=== PATIENT | male | born 1955 | race Caucasian/White ===

== ENCOUNTER 2025-01-09 22:50 | Inpatient (IN) | payer MEDICARE, OTHER ==
[~2025-01-09] VITALS: Ht 172.7 cm; Wt 84.0 kg
[~2025-01-09 22:50] MED LIST: CHOL500013 PO; MULT-1192 PO; RANI150T7 PO
[2025-01-09] MEDS ORDERED: PHENYLEPHRINE HCL IN 0.9% NACL 400 MCG/10 ML SYRINGE IVP ONE (23:12)
[2025-01-09] MEDS ORDERED: NOREPINEPHRINE 8 MG/0.9 % NACL 250 ML IV ONE (23:12)
[2025-01-09] MEDS ORDERED: 0.9% SODIUM CHLORIDE 10 ML SYRINGE IVP PRN (23:15)
[2025-01-09] MEDS: NOREPINEPHRINE 8 MG/0.9 % NACL 250 ML IV PRN (23:20)
[2025-01-09] MEDS: PIPERACILLIN/TAZO 3.375 GM/D5W 50 ML IV ONE (23:31)
[2025-01-09] MEDS: SODIUM CHLORIDE 0.9% 2,000 ML IV ONE (23:32)
[2025-01-09] MEDS: ONDANSETRON HCL 4 MG/2 ML VIAL IVP ONE (23:32)
[2025-01-09 23:37] LABS: PLATELET COUNT (AUTO) 270 K/uL (150-450); RED BLOOD CELL COUNT(AUTO) 4.53 MIL/uL (4.50-5.90); RED CELL DISTRIBUTION WIDTH 14.8 % (11.5-14.5); WHITE BLOOD COUNT (AUTO) 12.4 K/uL (4.5-11.0)
[2025-01-09 23:48] LABS: CALCIUM, TOTAL 10.2 mg/dL (8.8-10.5); CREATININE 2.93 mg/dL (0.60-1.30); GLOMERULAR FILTR. RATE CALC 21 mL/min (>60); GLUCOSE,RANDOM 284 mg/dL (70-110); SODIUM SERUM 140 mmol/L (136-145); UREA NITROGEN, BLOOD 26 mg/dL (7-18)
[2025-01-09 23:53] LABS: ASPARTATE AMINOTRANSFERASE 38 U/L (15-37); CREATINE KINASE, TOTAL ONLY 31 U/L (39-308); TOTAL PROTEIN, SERUM 6.5 g/dL (6.4-8.2)
[2025-01-09 23:55] LABS: ABG BASE EXCESS -21.6 mmol/L (-2.0-3.0); ABG CARBOXYHEMOGLOBIN 0.8 % (0.5-1.5); ABG HCO3 10.2 mmol/L (21.0-28.0); ABG METHEMOGLOBIN 0.3 % (0.0-1.5); ABG OXYGEN CONTENT 18.1 mL/dL (15.0-23.0); ABG OXYGEN SATURATION 97.1 % (94.0-98.0); ABG OXYHEMOGLOBIN 96.0 % (94.0-98.0); ABG PCO2 21 mmHg (32.0-48.0); ABG TOTAL HEMOGLOBIN 13.3 G/dL (13.5-17.5); FRACTIONATED INSPIRED OXYGEN 100.0 % (21-100.0); PO2, ARTERIAL BG 108.0 mmHg (83.0-108.0); SOURCE, BLOOD GAS ARTERIAL; TEMPERATURE, FAHRENHEIT, BG 98.0 FAHREN (96.0-98.6)
[2025-01-09 23:57] LABS: TROPONIN I-HIGH SENSITIVITY 31 ng/L (<76)
[2025-01-09 23:57] LABS: ABG A-A DIFF O2 584.9 mmHg (10-20.0); ABG PH 7.155 (7.350-7.450); ALLEN TEST, BLOOD GAS Positive; FLOW, BLOOD GAS 15.00 L/min (0.00-15.00); O2 DEVICE,BLOOD GAS NON-REBREATHER (ROOM AIR); SITE, BLOOD GAS RT RADIAL
[2025-01-10] VITALS (12 sets, daily range): BP systolic 87–90; BP diastolic 44–54; PULSE 133–148; RESP 16–30; TEMP 98.7–101.7; O2SAT 0–100
[2025-01-10] LABS: LACTIC ACID 12.2 mmol/L (0.4-2.0)
[2025-01-10 00:20] LABS: INFLUENZA TYPE A NEGATIVE FOR TYPE A (NEGATIVE); INFLUENZA TYPE B NEGATIVE FOR TYPE B (NEGATIVE)
[2025-01-10] MEDS ORDERED: SODIUM BICARBONATE [ADULT] 8.4% 50 MEQ/50 ML SYRINGE IVP ONE ×3 (00:44→09:46)
[2025-01-10 01:26] LABS: COVID AG,FIA SOURCE NASAL SWAB
[2025-01-10 01:46] LABS: SARS-COV2 (COVID) ANTIGEN,FIA Negative (Negative)
[2025-01-10] MEDS ORDERED: ONDANSETRON HCL 4 MG/2 ML VIAL IVP PRN (02:15)
[2025-01-10] MEDS ORDERED: 0.9% SODIUM CHLORIDE 10 ML SYRINGE IVP PRN (02:15)
[2025-01-10 02:28] LABS: APPEARANCE,URINE CLEAR (CLEAR); GLUCOSE, URINE (UA) >=1000 mg/dL (NEGATIVE); LEUKOCYTE ESTERASE ,URINE NEGATIVE (NEGATIVE); NITRATE,URINE NEGATIVE (NEGATIVE); OCCULT BLOOD,URINE NEGATIVE (NEGATIVE); SPECIFIC GRAVITIY, URINE 1.022 (1.003-1.030)
[2025-01-10 02:31] LABS: SQUAMOUS EPITHELIAL CELL,UR Rare /LPF (None Seen)
[2025-01-10 02:36] LABS: ABG BASE EXCESS -14.6 mmol/L (-2.0-3.0); ABG CARBOXYHEMOGLOBIN 1.8 % (0.5-1.5); ABG HCO3 13.7 mmol/L (21.0-28.0); ABG METHEMOGLOBIN 0.5 % (0.0-1.5); ABG OXYGEN CONTENT 17.5 mL/dL (15.0-23.0); ABG OXYGEN SATURATION 90.4 % (94.0-98.0); ABG OXYHEMOGLOBIN 88.3 % (94.0-98.0); ABG PCO2 41 mmHg (32.0-48.0); ABG TOTAL HEMOGLOBIN 14.1 G/dL (13.5-17.5); FRACTIONATED INSPIRED OXYGEN 100.0 % (21-100.0); PO2, ARTERIAL BG 65.7 mmHg (83.0-108.0); SOURCE, BLOOD GAS ARTERIAL; TEMPERATURE, FAHRENHEIT, BG 97.8 FAHREN (96.0-98.6)
[2025-01-10 02:37] LABS: ABG A-A DIFF O2 607.7 mmHg (10-20.0); ABG PH 7.159 (7.350-7.450); O2 DEVICE,BLOOD GAS VENT (ROOM AIR); PEEP,BG 5 cm H2O; SET RATE, BG 18.0 min.; SITE, BLOOD GAS RT FEMORAL; VT, ABG 500 ml
[2025-01-10] MEDS: VASOPRESSIN 40 UNITS in DEXTROSE 5%-WATER 98 ML IV PRN (02:39)
[2025-01-10] MEDS: PHENYLEPHRINE 200 MG/D5%-WATER 250 ML IV PRN (03:42)
[2025-01-10] MEDS: EPINEPHrine 5 MG in DEXTROSE 5%-WATER 245 ML IV PRN (06:51)
[2025-01-10] MEDS ORDERED: SODIUM CHLORIDE 0.9% 500 ML IV ONE (09:02)
[2025-01-10 09:36] LABS: ABG BASE EXCESS -17.2 mmol/L (-2.0-3.0); ABG CARBOXYHEMOGLOBIN 1.9 % (0.5-1.5); ABG HCO3 12.5 mmol/L (21.0-28.0); ABG METHEMOGLOBIN 0.3 % (0.0-1.5); ABG OXYGEN CONTENT 19.6 mL/dL (15.0-23.0); ABG OXYGEN SATURATION 98.3 % (94.0-98.0); ABG OXYHEMOGLOBIN 96.1 % (94.0-98.0); ABG PCO2 35 mmHg (32.0-48.0); ABG TOTAL HEMOGLOBIN 14.4 G/dL (13.5-17.5); FRACTIONATED INSPIRED OXYGEN 100.0 % (21-100.0); PO2, ARTERIAL BG 110.6 mmHg (83.0-108.0); SOURCE, BLOOD GAS ARTERIAL; TEMPERATURE, FAHRENHEIT, BG 98.7 FAHREN (96.0-98.6)
[2025-01-10 09:39] LABS: ABG PH 7.145 (7.350-7.450); ALLEN TEST, BLOOD GAS Positive; O2 DEVICE,BLOOD GAS VENTILATOR (ROOM AIR); SITE, BLOOD GAS RT RADIAL; VT, ABG 500 ml
[2025-01-10 09:40] LABS: PATIENT RATE, BG 25.0 min.; PEEP,BG 5 cm H2O; SET RATE, BG 16.0 min.; SPONTANEOUS VT, BG 537 ml
[2025-01-10 09:43] LABS: PLATELET COUNT (AUTO) 246 K/uL (150-450); RED BLOOD CELL COUNT(AUTO) 4.72 MIL/uL (4.50-5.90); RED CELL DISTRIBUTION WIDTH 14.7 % (11.5-14.5); WHITE BLOOD COUNT (AUTO) 20.8 K/uL (4.5-11.0)
[2025-01-10] MEDS: FAMOTIDINE 20 MG/2 ML VIAL IVP SCH (09:45)
[2025-01-10] MEDS: ALBUMIN HUMAN 5%-12.5GM/250ML 250 ML IV ONE (09:48)
[2025-01-10] MEDS: SODIUM BICARBONATE [ADULT] 8.4% 50 MEQ/50 ML SYRINGE IVP ONE (09:48)
[2025-01-10 09:54] LABS: CALCIUM, TOTAL 9.0 mg/dL (8.8-10.5); CREATININE 3.44 mg/dL (0.60-1.30); GLOMERULAR FILTR. RATE CALC 18.0 mL/min (>60); SODIUM SERUM 136.0 mmol/L (136-145); UREA NITROGEN, BLOOD 34.0 mg/dL (7-18)
[2025-01-10 09:56] LABS: GLUCOSE,RANDOM 434.0 mg/dL (70-110)
[2025-01-10 10:00] LABS: ASPARTATE AMINOTRANSFERASE 213.0 U/L (15-37); TOTAL PROTEIN, SERUM 6.1 g/dL (6.4-8.2)
[2025-01-10] MEDS ORDERED: SODIUM CHLORIDE 0.9% 250 ML IV ONE (10:01)
[2025-01-10] MEDS: PANTOPRAZOLE SODIUM 40 MG/VIAL IVP SCH (10:04)
[2025-01-10] MEDS: ETHYL ALCOHOL 62% ANTISEPTIC NASAL SANITIZER 0.6 ML AMPUL NASAL SCH (10:04)
[2025-01-10] MEDS: FentaNYL CIT 1000MCG/0.9% NACL 100 ML IV PRN (10:11)
[2025-01-10 10:38] LABS: BAND NEUTROPHILS % (MANUAL) 17 % (0-5); METAMYELOCYTES % 2 % (0-0); SEGMENTED NEUTROPHILS % 75 % (40-70)
[2025-01-10 10:39] LABS: LYMPHOCYTES % (MANUAL) 2 % (22-44); MONOCYTES % (MANUAL) 4 % (2-9)
[2025-01-10 10:40] LABS: RBC MORPHOLOGY COMMENT NORMAL RBC MORPH
[2025-01-10] MEDS ORDERED: ROCURONIUM BROMIDE 10 MG/ML 5 ML VIAL ONE (12:00)
[2025-01-10] MEDS ORDERED: ETOMIDATE 2 MG/ML 10 ML VIAL ONE (12:00)
[2025-01-10] MEDS: NOREPINEPHRINE 8 MG/0.9 % NACL 250 ML IV PRN (13:04)
[2025-01-10] MEDS: VANCOMYCIN 1GM/WATER(PEG/NADA) 200 ML IV ONE (13:04)
[2025-01-10] MEDS: SODIUM BICARBONATE 75 MEQ in SODIUM CHLORIDE 0.45% 1,000 ML IV SCH (13:11)
[2025-01-10] MEDS: PIPERACILLIN/TAZO 3.375 GM/D5W 50 ML IV SCH (15:14)
[2025-01-10] MEDS: HYDROCORTISONE SOD SUCC 100 MG/2 ML VIAL IVP SCH (15:14)
[2025-01-10] MEDS ORDERED: VANCOMYCIN 1GM/WATER(PEG/NADA) 200 ML IV PRN (15:30)
[2025-01-10] MEDS: HEPARIN SODIUM,PORCINE 5,000 UNITS/ML VIAL SQ SCH (17:33)
[2025-01-10] MEDS ORDERED: DEXTROSE 50%-WATER 25 GM/50 ML SYRINGE IVP PRN ×2 (21:00→23:30)
[2025-01-10] MEDS: INSULIN GLARGINE,HUM.REC.ANLOG 100 UNITS/ML SQ SCH (21:00)
[2025-01-10] MEDS: INSULIN LISPRO 100 UNITS/ML SQ PRN (21:01)
[2025-01-10] MEDS: ACETAMINOPHEN 325 MG TABLET PO PRN (21:08)
[2025-01-10 22:56] LABS: GLUCOMETER DEV NAME(LOC) ICU.S7; GLUCOSE,POINT OF CARE 442 MG/DL (70-110)
[2025-01-11] VITALS (14 sets, daily range): BP systolic 90–139; BP diastolic 43–47; PULSE 139–150; RESP 23–32; TEMP 99.8–104.8; O2SAT 0–100
[2025-01-11] MEDS: INSULIN LISPRO 100 UNITS/ML SQ ONE (00:29)
[2025-01-11 02:11] LABS: GLUCOMETER DEV NAME(LOC) ICU.S7; GLUCOSE,POINT OF CARE 491 MG/DL (70-110)
[2025-01-11] MEDS: EPINEPHrine 10 MG in DEXTROSE 5%-WATER 240 ML IV PRN (05:14)
[2025-01-11 05:56] LABS: RED BLOOD CELL COUNT(AUTO) 4.10 MIL/uL (4.50-5.90); RED CELL DISTRIBUTION WIDTH 16.0 % (11.5-14.5); WHITE BLOOD COUNT (AUTO) 24.0 K/uL (4.5-11.0)
[2025-01-11] MEDS: INSULIN LISPRO 100 UNITS/ML SQ PRN (05:59)
[2025-01-11 06:08] LABS: CALCIUM, TOTAL 7.8 mg/dL (8.8-10.5); CREATININE 4.18 mg/dL (0.60-1.30); GLOMERULAR FILTR. RATE CALC 14.0 mL/min (>60); SODIUM SERUM 128.0 mmol/L (136-145); UREA NITROGEN, BLOOD 44.0 mg/dL (7-18)
[2025-01-11 06:19] LABS: GLUCOSE,RANDOM 545.0 mg/dL (70-110)
[2025-01-11 07:24] LABS: PLATELET COUNT (AUTO) 97 K/uL (150-450)
[2025-01-11 07:29] LABS: BAND NEUTROPHILS % (MANUAL) 67 % (0-5); LYMPHOCYTES % (MANUAL) 5 % (22-44); METAMYELOCYTES % 2 % (0-0); MONOCYTES % (MANUAL) 2 % (2-9); NUCLEATED RED BLOOD CELLS 1.0 % (0.0-0.0); RBC MORPHOLOGY COMMENT NORMAL RBC MORPH; SEGMENTED NEUTROPHILS % 24 % (40-70)
[2025-01-11 07:50] LABS: GLUCOMETER DEV NAME(LOC) ICUN.7; GLUCOSE,POINT OF CARE 464 MG/DL (70-110)
[2025-01-11] MEDS ORDERED: VANCOMYCIN 750 MG/WATER(PEG) 150 ML IV SCH (08:00)
[2025-01-11] MEDS ORDERED: DEXTROSE 50%-WATER 25 GM/50 ML SYRINGE IVP PRN (08:00)
[2025-01-11] MEDS: DEXTROSE 5%-WATER 1,000 ML IV SCH (08:00)
[2025-01-11] MEDS: ALBUMIN HUMAN 5%-12.5GM/250ML 250 ML IV ONE (08:36)
[2025-01-11] MEDS: VASOPRESSIN 40 UNITS in DEXTROSE 5%-WATER 98 ML IV PRN (08:41)
[2025-01-11] MEDS: INSULIN GLARGINE,HUM.REC.ANLOG 100 UNITS/ML SQ ONE (08:51)
[2025-01-11] MEDS ORDERED: INSULIN GLARGINE,HUM.REC.ANLOG 100 UNITS/ML SQ SCH (09:00)
[2025-01-11] MEDS: CLINDAMYCIN 300 MG/D5% WATER 50 ML IV SCH (10:02)
[2025-01-11] MEDS: INSULIN REGULAR, HUMAN 100 UNITS in SODIUM CHLORIDE 0.9% 99 ML IV PRN ×2 (10:11→20:28)
[2025-01-11 10:51] LABS: GLUCOMETER DEV NAME(LOC) ICU.S7; GLUCOSE,POINT OF CARE 257 MG/DL (70-110)
[2025-01-11 12:21] LABS: GLUCOMETER DEV NAME(LOC) ICUN.7; GLUCOSE,POINT OF CARE 402 MG/DL (70-110)
[2025-01-11 12:21] LABS: GLUCOMETER DEV NAME(LOC) ICUN.7; GLUCOSE,POINT OF CARE 378 MG/DL (70-110)
[2025-01-11] MEDS ORDERED: FentaNYL CIT 1000MCG/0.9% NACL 100 ML IV PRN (14:00)
[2025-01-11] MEDS ORDERED: PROPOFOL 1000 MG/ISO-OSM 100 ML IV PRN (14:00)
[2025-01-11 14:16] LABS: GLUCOMETER DEV NAME(LOC) ICU.S7; GLUCOSE,POINT OF CARE 342 MG/DL (70-110)
[2025-01-11 14:34] LABS: ABG BASE EXCESS -17.8 mmol/L (-2.0-3.0); ABG CARBOXYHEMOGLOBIN 1.9 % (0.5-1.5); ABG HCO3 11.8 mmol/L (21.0-28.0); ABG METHEMOGLOBIN 0.3 % (0.0-1.5); ABG OXYGEN CONTENT 17.5 mL/dL (15.0-23.0); ABG OXYGEN SATURATION 99.7 % (94.0-98.0); ABG OXYHEMOGLOBIN 97.5 % (94.0-98.0); ABG PCO2 42 mmHg (32.0-48.0); ABG PH 7.075 (7.350-7.450); ABG TOTAL HEMOGLOBIN 12.1 G/dL (13.5-17.5); FRACTIONATED INSPIRED OXYGEN 100.0 % (21-100.0); PO2, ARTERIAL BG 362.9 mmHg (83.0-108.0); SITE, BLOOD GAS ARTERIAL LINE; SOURCE, BLOOD GAS ARTERIAL; TEMPERATURE, FAHRENHEIT, BG 104.8 FAHREN (96.0-98.6)
[2025-01-11 14:35] LABS: ABG A-A DIFF O2 297.9 mmHg (10-20.0); O2 DEVICE,BLOOD GAS VENTILATOR (ROOM AIR); PATIENT RATE, BG 25.0 min.; PEEP,BG 8 cm H2O; SET RATE, BG 16.0 min.; SPONTANEOUS VT, BG 414 ml; VT, ABG 500 ml
[2025-01-11] MEDS ORDERED: INSULIN LISPRO 100 UNITS/ML SQ PRN (14:45)
[2025-01-11 15:35] LABS: GLUCOMETER DEV NAME(LOC) ICU.S7; GLUCOSE,POINT OF CARE 268 MG/DL (70-110)
[2025-01-11 16:15] LABS: ABG BASE EXCESS -18.3 mmol/L (-2.0-3.0); ABG CARBOXYHEMOGLOBIN 2.0 % (0.5-1.5); ABG HCO3 11.6 mmol/L (21.0-28.0); ABG METHEMOGLOBIN 0.3 % (0.0-1.5); ABG OXYGEN CONTENT 16.5 mL/dL (15.0-23.0); ABG OXYGEN SATURATION 99.7 % (94.0-98.0); ABG OXYHEMOGLOBIN 97.4 % (94.0-98.0); ABG PCO2 38 mmHg (32.0-48.0); ABG PH 7.092 (7.350-7.450); ABG TOTAL HEMOGLOBIN 11.7 G/dL (13.5-17.5); FRACTIONATED INSPIRED OXYGEN 60.0 % (21-100.0); PO2, ARTERIAL BG 215.3 mmHg (83.0-108.0); SOURCE, BLOOD GAS ARTERIAL; TEMPERATURE, FAHRENHEIT, BG 104.9 FAHREN (96.0-98.6)
[2025-01-11 16:16] LABS: ABG A-A DIFF O2 164.6 mmHg (10-20.0); O2 DEVICE,BLOOD GAS VENTILATOR (ROOM AIR); PATIENT RATE, BG 29.0 min.; PEEP,BG 8 cm H2O; SET RATE, BG 26.0 min.; SITE, BLOOD GAS ARTERIAL LINE; SPONTANEOUS VT, BG 542 ml; VT, ABG 500 ml
[2025-01-11 16:25] LABS: GLUCOMETER DEV NAME(LOC) ICU.S7; GLUCOSE,POINT OF CARE 284 MG/DL (70-110)
[2025-01-11 17:20] LABS: GLUCOMETER DEV NAME(LOC) ICU.S7; GLUCOSE,POINT OF CARE 302 MG/DL (70-110)
[2025-01-11] MEDS: NOREPINEPHRINE BITARTRATE 16 MG in SODIUM CHLORIDE 0.9% 234 ML IV PRN (20:17)
[2025-01-11 23:31] LABS: GLUCOMETER DEV NAME(LOC) ICU.S7; GLUCOSE,POINT OF CARE 223 MG/DL (70-110)
[2025-01-11 23:31] LABS: GLUCOMETER DEV NAME(LOC) ICUN.7; GLUCOSE,POINT OF CARE 176 MG/DL (70-110)
[2025-01-11 23:31] LABS: GLUCOMETER DEV NAME(LOC) ICUN.7; GLUCOSE,POINT OF CARE 200 MG/DL (70-110)
[2025-01-11 23:31] LABS: GLUCOMETER DEV NAME(LOC) ICUN.7; GLUCOSE,POINT OF CARE 183 MG/DL (70-110)
[2025-01-12] VITALS (9 sets, daily range): BP systolic 73–117; BP diastolic 36–48; PULSE 116–251; RESP 26–27; TEMP 98.8–101; O2SAT 0–2
[2025-01-12] MEDS: PIPERACILLIN SODIUM/TAZOBACTAM 2.25 GM in DEXTROSE 5%-WATER 50 ML IV SCH (01:12)
[2025-01-12] MEDS ORDERED: LORazepam 2 MG/ML VIAL ONE (04:28)
[2025-01-12] MEDS: LORazepam 2 MG/ML VIAL IVP ONE (04:42)
[2025-01-12] MEDS: LevETIRAcetam 1,000 MG in DEXTROSE 5%-WATER 100 ML IV ONE (04:58)
[2025-01-12 05:31] LABS: GLUCOMETER DEV NAME(LOC) ICUN.7; GLUCOSE,POINT OF CARE 111 MG/DL (70-110)
[2025-01-12 05:31] LABS: GLUCOMETER DEV NAME(LOC) ICUN.7; GLUCOSE,POINT OF CARE 140 MG/DL (70-110)
[2025-01-12 05:31] LABS: GLUCOMETER DEV NAME(LOC) ICUN.7; GLUCOSE,POINT OF CARE 143 MG/DL (70-110)
[2025-01-12 05:31] LABS: GLUCOMETER DEV NAME(LOC) ICUN.7; GLUCOSE,POINT OF CARE 142 MG/DL (70-110)
[2025-01-12 05:31] LABS: GLUCOMETER DEV NAME(LOC) ICUN.7; GLUCOSE,POINT OF CARE 143 MG/DL (70-110)
[2025-01-12 05:31] LABS: GLUCOMETER DEV NAME(LOC) ICUN.7; GLUCOSE,POINT OF CARE 125 MG/DL (70-110)
[2025-01-12 05:57] LABS: CALCIUM, TOTAL 6.7 mg/dL (8.8-10.5); CREATININE 4.33 mg/dL (0.60-1.30); GLOMERULAR FILTR. RATE CALC 14.0 mL/min (>60); GLUCOSE,RANDOM 115.0 mg/dL (70-110); SODIUM SERUM 125.0 mmol/L (136-145); UREA NITROGEN, BLOOD 61.0 mg/dL (7-18)
[2025-01-12 08:46] LABS: GLUCOMETER DEV NAME(LOC) ICU.S7; GLUCOSE,POINT OF CARE 118 MG/DL (70-110)
[2025-01-12 08:46] LABS: GLUCOMETER DEV NAME(LOC) ICUN.7; GLUCOSE,POINT OF CARE 105 MG/DL (70-110)
[2025-01-12] MEDS: SODIUM BICARBONATE 150 MEQ in SODIUM CHLORIDE 0.45% 1,000 ML IV SCH (09:37)
[2025-01-12] MEDS: CALCIUM GLUCONATE 100 MG/ML 10 ML IVP ONE (09:37)
[2025-01-12] MEDS: SODIUM ZIRCONIUM CYCLOSILICATE 10 GM POWDER PACKET GT ONE (09:38)
[2025-01-12 09:56] LABS: ABG BASE EXCESS -25.1 mmol/L (-2.0-3.0); ABG CARBOXYHEMOGLOBIN 1.7 % (0.5-1.5); ABG HCO3 7.3 mmol/L (21.0-28.0); ABG METHEMOGLOBIN 0.3 % (0.0-1.5); ABG OXYGEN CONTENT 15.5 mL/dL (15.0-23.0); ABG OXYGEN SATURATION 99.9 % (94.0-98.0); ABG OXYHEMOGLOBIN 97.9 % (94.0-98.0); ABG PCO2 33 mmHg (32.0-48.0); ABG TOTAL HEMOGLOBIN 10.9 G/dL (13.5-17.5); FRACTIONATED INSPIRED OXYGEN 50.0 % (21-100.0); PO2, ARTERIAL BG 216.5 mmHg (83.0-108.0); SOURCE, BLOOD GAS ARTERIAL; TEMPERATURE, FAHRENHEIT, BG 100.8 FAHREN (96.0-98.6)
[2025-01-12 09:57] LABS: ABG PH 6.943 (7.350-7.450); SITE, BLOOD GAS ARTERIAL LINE
[2025-01-12 09:58] LABS: ABG A-A DIFF O2 101.3 mmHg (10-20.0); O2 DEVICE,BLOOD GAS VENTILATOR (ROOM AIR); PEEP,BG 5 cm H2O; SET RATE, BG 500.0 min.; VT, ABG 26 ml
[2025-01-12] MEDS: SODIUM BICARBONATE [ADULT] 8.4% 50 MEQ/50 ML SYRINGE IVP ONE (10:25)
[2025-01-12] MEDS: SODIUM BICARBONATE 150 MEQ in DEXTROSE 5%-WATER 1,000 ML IV SCH (11:00)
[2025-01-12 11:49] LABS: RED BLOOD CELL COUNT(AUTO) 3.50 MIL/uL (4.50-5.90); RED CELL DISTRIBUTION WIDTH 16.0 % (11.5-14.5); WHITE BLOOD COUNT (AUTO) 14.4 K/uL (4.5-11.0)
[2025-01-12 12:01] LABS: PLATELET COUNT (AUTO) 7 K/uL (150-450)
[2025-01-12 13:08] LABS: PATHOLOGY REVIEW, DIFF YES
[2025-01-12 13:10] LABS: BAND NEUTROPHILS % (MANUAL) 26 % (0-5); LYMPHOCYTES % (MANUAL) 10 % (22-44); METAMYELOCYTES % 1 % (0-0); MONOCYTES % (MANUAL) 9 % (2-9); MYELOCYTES % 2 % (0-0); NUCLEATED RED BLOOD CELLS 2.0 % (0.0-0.0); SEGMENTED NEUTROPHILS % 52 % (40-70)
[2025-01-12] MEDS ORDERED: INSULIN REGULAR, HUMAN 100 UNITS/ML SQ ONE (13:15)
[2025-01-12] MEDS ORDERED: DEXTROSE 50%-WATER 25 GM/50 ML SYRINGE IVP ONE (13:15)
[2025-01-12] MEDS ORDERED: VANCOMYCIN 1GM/WATER(PEG/NADA) 200 ML IV ONE (15:30)
[2025-01-12] MEDS ORDERED: HYDROCORTISONE SOD SUCC 100 MG/2 ML VIAL IVP SCH (21:00)
== END 2025-01-12 16:00 | DRG 871 ==
LOC: EMS 22:51 → EDH 01-10 02:13 → ICU 01-10 05:24
PROVIDERS: ADMIT Internal Medicine; ATTEND Internal Medicine
PROC: 5A1945Z Respiratory Ventilation, 24-96 Consecutive Hours (ICD-10-PCS; principal; 2025-01-10)
PROC: 0BH17EZ Insertion of Endotracheal Airway into Trachea, Via Natural or Artificial Opening (ICD-10-PCS; 2025-01-10)
DX: A41.9 Sepsis, unspecified organism (principal); D65 Disseminated intravascular coagulation [defibrination syndrome]; E43 Unspecified severe protein-calorie malnutrition; J18.9 Pneumonia, unspecified organism; N17.0 Acute kidney failure with tubular necrosis; R65.21 Severe sepsis with septic shock; G93.41 Metabolic encephalopathy; J80 Acute respiratory distress syndrome; K72.00 Acute and subacute hepatic failure without coma; E11.65 Type 2 diabetes mellitus with hyperglycemia; I50.9 Heart failure, unspecified; Z91.158 Patient's noncompliance with renal dialysis for other reason; E87.1 Hypo-osmolality and hyponatremia; E87.29 Other acidosis; I47.20 Ventricular tachycardia, unspecified; Z59.00 Homelessness unspecified; Z20.822 Contact with and (suspected) exposure to COVID-19; N18.9 Chronic kidney disease, unspecified; Z66 Do not resuscitate; E11.22 Type 2 diabetes mellitus with diabetic chronic kidney disease; E87.5 Hyperkalemia; Z87.891 Personal history of nicotine dependence; Z68.25 Body mass index [BMI] 25.0-25.9, adult
CPT/HCPCS: 31500; 36556; 70450; 71045; 71250; 72192; 74150; 80048; 80076; 80202; 81001; 82550; 82805; 82962; 83605; 83880; 84145; 84484; 85025; 85610; 85730; 87040; 87070; 87081; 87086; 87804; 93005; 93308; 94002; 94003; 96361; 96365; 96375; 99291; J0169; J0610; J0712; J1644; J1720; J1815; J2060; J2370; J2405; J2470; J2543; J3010; J3490; J7040; J7050; J7060; P9041; 36415-L1; 36415-TC